=== PATIENT | female | born 1960 | race Caucasian/White ===

== ENCOUNTER 2024-09-11 14:31 | Outpatient (NON) | payer MEDICARE, OTHER, SELFPAY ==
--- OUTSIDE RECORDS SUMMARY | 2024-09-12 14:36 | XMS_ITS | Clinical Summary ---
Author Organization [facility] Address [address] [place] [address] Care Team Providers Care Stock Digger Name Role Phone Anitha Redding MD Primary Care Provider [phone] Allergies No known active allergies Medications multivitamin capsule Rx: Multivitamins - Capsule Active estradioL (VIVELLE-DOT) 0.075 mg/[address] 1 patch on the skin 2 (two) times a week 24 patch 4 Active Additional Information Patient not taking.Reported on 07/11/2024 Active Problems Problem Noted Date Diagnosed Date Ear itching 07/11/2024 Ear pain, bilateral 07/11/2024 Chronic eczematous otitis externa of both ears 0 07/11/2024 Positive colorectal cancer screening using Colog uard test 04/10/2024 Encounters Date Type Department Care Team Description 07/11/2024 3:00 PM PAINT FORMULATOR Office Visit [facility] Otolaryngology [address] [place] [phone] Haydee Bernardo, UBALDO Chronic eczematous otitis externa of both ears (Primary Dx); Ear pain, bilateral; Ear itching from Last 3 Months Surgical History Surgery Date Site/Laterality Comments LAPAROSCOPICALLY ASSISTED VAGINAL HYSTERECTOMY 06/18/2009 - 06/17/2010 LAVH, BSO, Anterior repair with Mini Arc TUBAL LIGATION Bilateral HYSTERECTOMY Total BREAST BIOPSY Left SHOULDER SURGERY 06/18/2015 - 06/17/2016 Right LASIK Medical History Medical History Date Comments Ear problems Family History Medical History Relation Name Comments No Known Problems Father No Known Problems Mother Breast cancer Neg Hx Ovarian cancer Neg Hx Relation Name Status Comments Father Mother Social History Tobacco Use Types Packs/Day Years Used Date Smoking Tobacco: Never Smokeless Tobacco: Never Tobacco Cessation:Counseling Given: Not Answered Alcohol Use Standard Drinks/Week Comments Not Currently 0 (1 standard drink = 0.6 oz pur e alcohol) AUDIT-C Answer Date Recorded Q1: How often do you have a drink containing alc ohol? 2-4 times a month 05/02/2024 Q2: How many drinks containi ng alcohol do you have on a typical day when you are drinking? 1 or 2 05/02/2024 Q3: How often do you have si x or more drinks on one occasion? Never 05/02/2024 Personal Safety Answer Date Recorded Have you ever been in or are you currently in a harmful physical or emotional relationship or is someone making you feel afraid or unsafe? Denies 05/02/2024 Comments No Sex and Gender Information Value Date Recorded Sex Assigned at Not on file Legal Sex Female 6:31 PM PAINT FORMULATOR Gender Identity Not on file Sexual Orientation Not on file Obstetrics History Para Term AB IAB SAB Ectopic Multiple Livin g Live Births 5 5 5 Date Outcome GA Total Labor Labor/2nd/3rd Weight Sex Type Anes PTL Marnie A1 A5 Name Clin Term Term Term Term Term Comments Last Filed Vital Signs Vital Sign Reading Time Taken Comments Blood Pressure 95/59 05/02/2024 4:10 PM PAINT FORMULATOR Pulse 72 05/02/2024 4:10 PM PAINT FORMULATOR Temperature 36.2 C (97.2 F) 05/02/2024 12:36 PM PAINT FORMULATOR Respiratory Rate 18 07/11/2024 2:50 PM PAINT FORMULATOR Oxygen Saturation 98% 05/02/2024 4:10 PM PAINT FORMULATOR Inhaled Oxygen Concentration - - Weight 49 kg (108 lb) 07/11/2024 2:50 PM PAINT FORMULATOR Height 154.9 cm (5' 1 ) 07/11/2024 2:50 PM PAINT FORMULATOR Body Mass Index 20.41 07/11/2024 2:50 PM PAINT FORMULATOR Plan of Treatment Health Maintenance Due Date Last Done Comments Depression Screening 1960 Fall Risk Assessment 1960 Hepatitis C Screening 1960 Osteoporosis Screening-Bone Density Scan 1960 DTaP/Tdap/Td Vaccine (1 - Tdap) 1969 Hepatitis B Screening 1976 Pneumococcal vaccine 65+ (1 of 1 - PCV) 2008 Zoster Vaccine (1 of 2) 2008 Well Visit 65+ 11/07/2023 02/11/2021, 2018 Covid-19 Vaccine (2 - 2023-2 5 season) 2024 05/11/2021 Breast Cancer Screening-Mammogram 04/09/2025 04/09/2024, 04/09/2024, 03/24/2021, Additional history exists Colon Cancer Screening-Colonoscopy 05/02/2034 05/02/2024 Cervical Cancer Screening Discontinued 2020, 05/21/2015, 05/08/2014 Influenza Vaccine Completed 04/10/2024, , 02/29/2016, Additional history exists Colon Cancer Screening-CT Colonography Discontinued 05/02/2024 Colon Cancer Screening-DNA Stool Discontinued 05/02/20 Colon Cancer Screening-FIT Discontinued 05/02/2024 Colon Cancer Screening-Sigmoidoscopy Discontinued 05/02/2024 Procedures Procedure Name Priority Date/Time Associated Diagnosis Comments COLONOSCOPY 05/02/2024 3:20 PM PAINT FORMULATOR SCREENING MAMMOGRAM BILATERAL W RAMÓN Schedule Routine, Read Routine (OP Routine) 03/24/2021 4:18 PM CDT Visit for screening mammogram THINPREP PAP WITH HPV Routine 02/11/2021 10:42 AM CDT from Last 3 Months or Most Recently Relevant to Health Maintenance Results * Colonoscopy (05/02/2024 3:20 PM PAINT FORMULATOR) Anatomical Region Laterality Modality Other Narrative Procedure Note Tyrel Ulloa MD - 05/02/2024 3:20 PM CST [facility] GI ENDOSCOPY Patient Name: Junie Wallis Procedure Date: 05/02/2024 3:20 PM Date of : 1960 Admit Type: Outpatient Age: 63 Gender: Female Attending MD: Tyrel Ulloa MD Room: [facility] ENDOSCOPY ROOM 04 Note Status: Finalized Procedure: Colonoscopy Indications: +cologuard, average risk Referring MD: Tyrel Ulloa MD Providers: Tyrel Ulloa MD Medicines: See the Anesthesia note for documentation of the administered medications Complications: No immediate complications. Estimated Blood Loss: Estimated blood loss was minimal. Procedure: The benefits, risks and alternatives of theprocedure and sedation were discussed and informed consentwas obtained. All questions were answered. Please referto the signed informed consent document in the medical record. The scope was passed under direct vision.The [id number] was introduced through theanus and advanced to the terminal ileum, with identification of the appendiceal orifice and IC valve. The colonoscopy was performed without difficulty. The patient tolerated the procedurewell. The quality of the bowel preparation was good.Scope insertion time was 2 minutes. Scope withdrawal time was 12 minutes. Prep was administered in a splitdose. Findings: The perianal and digital rectal examinations were normal. The visualized terminal ileum appeared normal. A 7 mm polyp was found in the ascending colon. The polyp was sessile. The polyp was removed with a cold snare. Resection and retrieval were complete. A 6 mm polyp was found in the rectum. The polyp was sessile. Thepolyp was removed with a cold snare. Resection and retrieval werecomplete. Mild pancolonic diverticulosis. Internal hemorrhoids were found. The hemorrhoids were small. Impression: - The examined portion of the terminal ileum was normal. - One 7 mm polyp in the ascending colon, removedwith a cold snare. Resected and retrieved. - One 6 mm polyp in the rectum, removed with a cold snare. Resected and retrieved. - Diverticulosis in the entire examined colon. - Internal hemorrhoids. Recommendation: - Await pathology results. - Resume previous diet today. - Discharge patient to home. - Increase fiber. - Patient has a contact number available for emergencies. The signs and symptoms of potential delayed complications were discussed with thepatient. Return to normal activities tomorrow. Written discharge instructions were provided to thepatient. - I would be happy to see you in my GI clinic ifyou have further questions or concerns or if symptoms progress Tyrel Ulloa MD 05/02/2024 3:45:34 PM Number of Addenda: 0 Note Initiated On: 05/02/2024 3:20 PM Recognized by the [employer] for promoting quality in endoscopy us Tyrel Ulloa MD ENDOSCOPY PROCEDURES Regine l Result * Screening Mammogram Bilateral W Ramón (03/24/2021 4:18 PM CDT) Anatomical Region Laterality Modality Breast Bilateral Mammography Impressions 03/25/2021 7:57 AM CDT BI-RADS ATLAS category (overall): 2 Benign There is no mammographic evidence of malignancy. A 1 year screening mammogram is recommended. The patient has been or will be contacted. We recommend annual screening mammography for women at average risk of breast cancer beginning at age 40, based on guidelines of the [employer] (ACR Practice Parameter for the Performance of Screening and Diagnostic Mammography) and [employer]. For women with and elevated risk of breast cancer, please refer to the ACR Practice Parameter for specific screening recommendations. The patient will be entered into a reminder system with a target due date of 1 year for her next screening exam. Narrative 03/25/2021 7:57 AM CDT Screening Mammogram Bilateral W Ramón: 03/24/21 The study was acquired using full field digital technology and interpreted from soft copy. 2D digital mammographic views, as well as 3D digital tomosynthesis were performed in the CC and MLO projections. CLINICAL: Visit for screening mammogram No relevant medical history has been documented for this patient. History of breast cancer in Neg Hx. COMPARISONS: 04/04/2018 Screening Mammogram 2D Bilateral 04/23/2015 Screening Mammogram Bilateral W Ramón 06/06/2013 Screening Mammogram 2D Bilateral BREAST TISSUE: The breasts are extremely dense, which lowers the sensitivity of mammography. FINDINGS: There are benign appearing calcifications in both breasts. There is a biopsy clip in the left breast. No suspicious masses, suspicious calcifications, or other suspicious findings are seen within either breast. There has been no suspicious change. Yadiel Cavazos MD IMG MAMMO PROCEDURES Fi nal Result * ThinPrep Pap with HPV (02/11/2021 10:42 AM CDT) Pap test 02/11/2021 10:4 2 AM CDT 02/14/2021 10:42 AM CDT Narrative 02/17/2021 1:59 PM CDT [facility] Department of Pathology [address] [place] [address] Final Report with Addendum Note to Patients: This report may contain a detailed description of human tissue sent by a health care provider to the laboratory for pathologic evaluation. The content of this report is essential for diagnosis and may provide important critical findings. This information may be unfamiliar to patients to review without a medical professional present. It is advised that the patient review this report in the presence of a health care provider who can answer questions and explain the details. Patient Name: JUNIE WALLIS Address: [address] [place] [address] Gender: F : 1960 (Age: 60) Service: Laboratory Location: [facility] #: [id number] Patient Type: Taken: 02/11/2021 Received: 02/14/2021 Accessioned:: 02/15/2021 Reported: 02/17/2021 Physician(s): Yadiel Cavazos M.D. [facility] Diagnosis: Source of Specimen: Imaged Thinprep Pap Test plus HPV - [employer] Interpreter Cytologic Material Specimen Adequacy: - Specimen satisfactory for interpretation; indeterminate endocervical component due to marked atrophy General Category: - Negative for intraepithelial lesion or malignancy Interpretation/Results: - Numerous inflammatory cells present NAHID Gonzalez(ASCP) Report Electronically Reviewed and Signed Out By NAHID Gonzalez(ASCP) 02/17/2021 13:59:40 Addenda: HPV Test Interpretation NEGATIVE for types 16, 18, 31, 33, 35, 39, 45, 51, 52, 56, 58, 59, 66 and 68. Test performed utilizing Gen-Probe Aptima assay. NAHID Schreiber(ASCP) Report Electronically Reviewed and Signed Out By NAHID Schreiber(ASC) 02/17/2021 11:53:26 Specimen(s) Received: A: Imaged Thinprep Pap Test plus HPV - [employer] Interpreter Cytologic Material Clinical History: Menstrual History: Hysterectomy The Pap test is a screening test used to aid in the detection of cervical cancer and its precursors. It should not be the sole means by which malignant and premalignant lesions are diagnosed. Both false negative and false positive results may occur. It also has poor sensitivity for the detection of endometrial lesions and should not be used to evaluate suspected endometrial abnormalities. For these reasons it is most important to obtain Pap tests at regular intervals. The performance characteristics of some immunohistochemical stains, fluorescence in-situ hybridization tests and immunophenotyping by flow cytometry cited in this report (if any) were determined by the Surgical Pathology Department at [facility] as part of an ongoing quality eng program and in compliance with federally mandated regulations drawn from the Clinical Laboratory Improvement Act of 1988 (CLIA '88). Some of these tests rely on the use of analyte specific reagents and are subject to specific labeling requirements by the US Food and Drug Administration. Such diagnostic tests may only be performed in a facility that is certified by the Department of Health and Human Services as a high complexity laboratory under CLIA '88. The FDA has determined that such clearance or approval is not necessary. This test is used for clinical purposes. It should not be regarded as investigational or for research. Nevertheless, federal rules concerning the medical use of analyte specific reagents require that the following disclaimer be attached to the report: This test was developed and its performance characteristics determined by the Surgical Pathology Department [facility]. It has not been cleared or approved by the U. S. Food and Drug Administration. Yadiel Cavazos MD LAB CYTOLOGY ORDERABLES Final Result from Last 3 Months or Most Recently Relevant to Health Maintenance Insurance COMMERCIAL GENERIC MEDICARE [facility] MEDIC[facility] Care Teams Stock Digger Relationship Specialty Start Date End Date Anitha Redding MD [address] [place] [address] PCP - General Family Medicine 07/01/24
--- OUTSIDE RECORDS SUMMARY | 2024-09-12 14:36 | XMS_ITS | Clinical Summary ---
Author Organization [facility] Address [facility] [place] [address] Care Team Providers Care Piped Buttonhole Machine Operator Name Role Phone Anitha Redding MD Primary Care Provider [phone] Allergies No known active allergies Medications Multiple Vitamin (MULTIVITAMIN) capsule Take 1 capsule by mouth daily. Active Active Problems Problem Noted Date Diagnosed Date Dizziness and giddiness 04/11/2024 Positive colorectal cancer screening using Colog uard test 04/10/2024 Encounters Date Type Department Care Team Description 07/25/2024 1:45 PM TEST SKEIN WINDER Office Visit [facility] [phone] Niyah Hays, LOCKER ROOM CLERK Follow Up 07/25/2024 Travel 07/03/2024 Telephone [facility] Family Medicine [address] [phone] Anitha Redding MD Referral Request 06/27/2024 2:00 PM TEST SKEIN WINDER Telemedicine [facility] - [address], [address] [place] [phone] Alana Watson NP Follow Up (- 6-10wk f/u/) 06/27/2024 Travel from Last 3 Months Immunizations Name Administration Dates Next Due Influenza (Generic) 02/29/2016,03/14/2015,2013 Influenza Adult (Generic) 04/16/2023 Family History Medical History Relation Comments brain tumor Daughter Relation Status Comments Daughter Social History Tobacco Use Types Packs/Day Years Used Date Smoking Tobacco: Never Passive Smoke Exposure: Never Smokeless Tobacco: Never Tobacco Cessation:Counseling Given: Not Answered Alcohol Use Standard Drinks/Week Comments Yes 0 (1 standard drink = 0.6 oz pur e alcohol) few drinks a month PHQ-2 Answer Date Recorded Patient Health Questionnaire-2 Score 0 04/04/2024 Comments No Sex and Gender Information Value Date Recorded Sex Assigned at Female 07/25/2024 1:38 PM TEST SKEIN WINDER Legal Sex Female 9:31 AM TEST SKEIN WINDER Gender Identity Not on file Sexual Orientation Not on file Last Filed Vital Signs Vital Sign Reading Time Taken Comments Blood Pressure 110/62 07/25/2024 1:41 PM TEST SKEIN WINDER Pulse 91 07/25/2024 1:41 PM TEST SKEIN WINDER Temperature 36.6 C (97.8 F) 04/11/2024 1:11 PM CDT Respiratory Rate 16 04/11/2024 1:11 PM CDT Oxygen Saturation 96% 07/25/2024 1:41 PM TEST SKEIN WINDER Inhaled Oxygen Concentration - - Weight 48.5 kg (107 lb) 07/25/2024 1:41 PM TEST SKEIN WINDER Height 154.9 cm (5' 1 ) 07/25/2024 1:41 PM TEST SKEIN WINDER Body Mass Index 20.22 07/25/2024 1:41 PM TEST SKEIN WINDER Plan of Treatment Health Maintenance Due Date Last Done Comments DTaP, Tdap and Td Vaccines (1 - Tdap) 1977 Dexa Scan (General) 11/07/2023 Influenza Adult (#1) 2024 04/16/2023, 02/29/2016, 03/14/2015, Additional history exists PHQ-2 (Physician [place]) 06/18/2024 04/04/2024 COVID-19 Vaccine (2 - season) 2025 05/11/2021 Postponed from 02/17/2024 (Patient Refused) Zoster Vaccines (1 of 2) 03/18/2025 Pos tponed from 2008 (Patient Refused) Mammogram Screening 04/09/2026 04/09/2024, 03/24/2021, 04/04/2018, Additional history exists Pneumococcal Vaccine: 65+ Years (1 of 1 - PCV) 06/18/2026 Postponed from 11/07/2023 (Patient Refused) Colorectal Cancer Screening FIT-DNA (3 Years) 03/22/2027 03/22/2024, 03/22/2024 RSV Immunization or 60+ Years (1 - 1-dose 75+ series) 2033 Hepatitis C Completed 03/29/2024 Meningococcal B Vaccine Aged Out No l onger eligible based on patient's age to complete this topic Meningococcal Vaccine Aged Out No kiki philip eligible based on patient's age to complete this topic Pneumococcal Vaccine: Pediatrics (0 to 5 Years) and At-Risk Patients (6 to 64 Years) Aged Out No longer eligible based on patient's age to complete this topic RSV Immunizations Under 20 Months Aged Out No longer eligible based on patient's age to complete this topic Medical Devices Implanted Type Area Desktop Analyst Device Identifier Shelf Expiration Date Model / Serial / Lot Speedbridge Implant Sytem With Scorpionn- Multifire Needle Implanted:Qty: 1 on 04/16/2019 by Suraj Lam MD at [facility] Right: Shoulder [employer] [id number] 12/15/2020 [id number] S-8 / / [id number] 2.6 Fiber Jono Suture [place], Double Loaded Implanted:Qty: 1 on 04/16/2019 by Suraj Lam MD at [facility] Right: Shoulder [employer] [id number] 08/16/2023 [id number]-[id number] / / [id number] Procedures Procedure Name Priority Date/Time Associated Diagnosis Comments MG SCREENING W RAMÓN PUSHPA DIGI Routine 04/09/2024 4:45 PM CDT Encounter for screening mammogram for malignant neoplasm of breast HEPATITIS C ANTIBODY Routine 03/29/2024 8:29 AM CDT Encounter for hepatitis C screening test for low risk patient COLOGUARD (EXACT SCIENCE) Routine 03/22/2024 9:20 AM CDT Colon cancer screening from Last 3 Months or Most Recently Relevant to Health Maintenance Results * MG SCREENING W RAMÓN PUSHPA DIGI (04/09/2024 4:45 PM CDT) Anatomical Region Laterality Modality Breast Bilateral Mammography 04/09/2024 5:42 PM CDT Impressions 04/09/2024 5:50 PM CDT IMPRESSION: No suspicious mammographic findings. Recommendation: 1. Routine Screening, Bilateral Assessment: ACR BI-RADS 2 - BENIGN FINDING(S) Ordered By: ANITHA REDDING Interpreted By: Jean Loyd MD, 04/09/2024 5:42 PM Narrative 04/09/2024 5:[address] [facility] Care [facility] [place] [address] Examination: Screening bilateral mammogram Exam Date: 04/09/2024 4:21 PM Clinical history: Routine screening. Comparison: 03/24/2021, 04/04/2018 Technique: Digital screening mammography of both breasts was performed. Breast tomosynthesis acquisitions were obtained and reviewed. This study was read with the assistance of a computer-aided detection system. Tissue density: The breasts are heterogeneously dense, which may obscure small masses. Findings: The breast parenchymal findings are stable. Scattered benign-appearing calcifications are noted. Left breast biopsy clip. No suspicious masses, malignant appearing calcifications, skin thickening or other abnormalities are present. No significant change from the prior exam. Anitha Redding MD MAMMO Final Result * HEPATITIS C ANTIBODY (03/29/2024 8:29 AM CDT) HEPATITIS C AB NON-REACTI VE NON-REACTI VE 03/29/2024 10:07 AM CDT [facility] 03/29/2024 8:29 AM CDT Anitha Redding MD LABORATORY Final Result [facility] [address] [place] [address], [place] [phone] * (ABNORMAL) COLOGUARD (EXACT SCIENCE) (03/22/2024 9:20 AM CDT) COLOGUARD RESULT Positive( A) Negative [employer] (CLIA #:[id number]) Comment: POSITIVE TEST RESULT. A positive Cologuard result should be followed with a colonoscopy or visual examination of the colon. The normal value (reference range) for this assay is negative. TEST DESCRIPTION: Composite algorithmic analysis of stool DNA-biomarkers with hemoglobin immunoassay. Quantitative values of individual biomarkers are not reportable and are not associated with individual biomarker result reference ranges. Cologuard is intended for colorectal cancer screening of adults of either sex, 45 years or older, who are at average-risk for colorectal cancer (CRC). Cologuard has been approved for use by the U.S. FDA. The performance of Cologuard was established in a cross sectional study of average-risk adults aged 50-84. Cologuard performance in patients ages 45 to 49 years was estimated by sub-group analysis of near-age groups. Colonoscopies performed for a positive result may find as the most clinically significant lesion: colorectal cancer [4.0%], advanced adenoma (including sessile serrated polyps greater than or equal to 1cm diameter) [20%] or non- advanced adenoma [31%]; or no colorectal neoplasia [45%]. These estimates are derived from a prospective cross-sectional screening study of 10,000 individuals at average risk for colorectal cancer who were screened with both Cologuard and colonoscopy. (Chani Beavers et al, N Engl J Med 2014;370(14):5784-8051.) Cologuard may produce a false negative or false positive result (no colorectal cancer or precancerous polyp present at colonoscopy follow up). A negative Cologuard test result does not guarantee the absence of CRC or advanced adenoma (pre-cancer). The current Cologuard screening interval is every 3 years. ([place] [employer] Society and U.S. Multi-Society Task Force). Cologuard performance data in a 10,000 patient pivotal study using colonoscopy as the reference method can be accessed at the following location: [email or web address].Jobvite/results. Additional description of the Cologuard test process, warnings and precautions can be found at www.cologuard.com. STOOL STOOL SPECIMEN / Unknown 03/22/2024 9:20 AM CDT 03/23/2024 6:45 PM CDT Anitha Redding MD BODY FLUIDS AND STOOLS ORDERABLE S Final Result [email or web address] [facility] [address] [place] [address], [employer] (CLIA #:[id number]) [address] [place] [address] from Last 3 Months or Most Recently Relevant to Health Maintenance Insurance R MEDICARE Care Teams Piped Buttonhole Machine Operator Relationship Specialty Start Date End Date Anitha Redding MD [address] [place] [address] PCP - General FAMILY PRACTICE 03/18/24
--- OUTSIDE RECORDS SUMMARY | 2024-09-12 14:36 | XMS_ITS | Clinical Summary ---
Author Organization [facility] Address [address] [place] [phone] Care Team Providers Care Freight Traffic Consultant Name Role Phone Unavailable Primary Care Provider Unavailabl e Social History Tobacco Use Types Packs/Day Years Used Date Smoking Tobacco: Never Assessed Comments Unknown Sex and Gender Information Value Date Recorded Sex Assigned at Not on file Legal Sex Female 3:43 PM CDT Gender Identity Not on file Sexual Orientation Not on file Plan of Treatment Health Maintenance Due Date Last Done Comments DEXA Bone Density 1960 Hepatitis C Virus (HCV) Screening 1960 TdaP Immunization 1960 Pap Smear 11/07/1979 Cervical Cancer Screening (CCS) 1988 HPV/Cotest 1988 Colonoscopy 11/07/2003 Colorectal Cancer Screening 11/07/2003 Cologuard 2008 Immunochemical Fecal Occult Blood 2008 Mammogram 2008 Pneumococcal Immunization (5 0+ years) (1 of 1 - PCV) 2008 Zoster Immunization (1 of 2) 2008 Influenza Immunization (#1) 02/17/202402/16, 03/14/2015, 03/31/2014 SARS-COV-2 Immunization ( - 2023- season) 2024 Respiratory Syncytial Virus (RSV) Immunization (Adult) (1 - 1-dose 75+ series) 2033 Hepatitis B Immunization Aged Out No longer eligible based on patient's age to complete this topic Meningococcal Immunization (ACWY) Aged Out No longer eligible b ased on patient's age to complete this topic Rotavirus Immunization Aged Out No lo nger eligible based on patient's age to complete this topic
--- OUTSIDE RECORDS SUMMARY | 2024-09-12 14:36 | XMS_ITS | Referral Summary ---
Author Organization [facility] Address [address] [place] [address] Care Team Providers Care Cigar Patcher Name Role Phone Anitha Redding MD Primary Care Provider [phone] Encounters Date Type Department Care Team Description 07/11/2024 3:00 PM [employer]ODU[employer] SALES REPRESENTATIVE Office Visit [facility] Otolaryngology [address] [place] [phone] Haydee Bernardo, UBALDO Chronic eczematous otitis externa of both ears (Primary Dx); Ear pain, bilateral; Ear itching from Last 3 Months Allergies No known active allergies Medications multivitamin [...] cancer screening using Colog uard test 04/10/2024 Social History Tobacco Use Types Packs/Day Years [...] on file Legal Sex Female 6:31 PM [employer] SALES REPRESENTATIVE Gender Identity Not on file Sexual Orientation Not on file Last Filed Vital Signs Vital Sign Reading Time Taken Comments Blood Pressure 95/59 05/02/2024 4:10 PM [employer] SALES REPRESENTATIVE Pulse 72 05/02/2024 4:10 PM [employer] SALES REPRESENTATIVE Temperature 36.2 C (97.2 F) 05/02/2024 12:36 PM [employer] SALES REPRESENTATIVE Respiratory Rate 18 07/11/2024 2:50 PM [employer] SALES REPRESENTATIVE Oxygen Saturation 98% 05/02/2024 4:10 PM [employer] SALES REPRESENTATIVE Inhaled Oxygen Concentration - - Weight 49 kg (108 lb) 07/11/2024 2:50 PM [employer] SALES REPRESENTATIVE Height 154.9 cm (5' 1 ) 07/11/2024 2:50 PM [employer] SALES REPRESENTATIVE Body Mass Index 20.41 07/11/2024 2:50 PM [employer] SALES REPRESENTATIVE Plan of Treatment Not on file Procedures Procedure Name Priority Date/Time Associated Diagnosis Comments COLONOSCOPY 05/02/2024 3:20 PM [employer] SALES REPRESENTATIVE SCREENING MAMMOGRAM BILATERAL W RAMÓN Schedule Routine, Read Routine (OP Routine) 03/24/2021 4:18 PM CDT Visit for screening mammogram THINPREP PAP WITH HPV Routine 02/11/2021 10:42 AM CDT from Last 3 Months or Most Recently Relevant to Health Maintenance Results * Colonoscopy (05/02/2024 3:20 PM [employer] SALES REPRESENTATIVE) Anatomical Region Laterality Modality Other Narrative Procedure Note Tyrel Ulloa MD - 05/02/2024 3:20 PM CST [facility] GI ENDOSCOPY Patient Name: Junie Wallis Procedure Date: 05/02/2024 3:20 PM Date of : 1960 Admit Type: Outpatient Age: 63 Gender: Female Attending MD: Tyrel Ulloa MD Room: [facility] END[facility]COPY ROOM 04 Note Status: Finalized Procedure: [...] The scope was passed under direct vision.The [id number] was introduced through theanus and advanced to [...] On: 05/02/2024 3:20 PM Recognized by the [employer] [employer] for promoting quality [...] age 40, based on guidelines of the [employer] [employer] (ACR Practice Parameter for the Performance of Screening and Diagnostic Mammography) and [employer] [employer]. For women [...] AM CDT Narrative 02/17/2021 1:59 PM CDT [facility] Department of Pathology [address] [place] [id number] Final Report with Addendum Note to Patients: [...] the details. Patient Name: JUNIE WALLIS Address: [address] [place] [id number] Gender: F : 1960 (Age: 60) Service: Laboratory Location: [facility] #: [id number] Patient Type: Taken: 02/11/2021 Received: 02/14/2021 Accessioned:: 02/15/2021 Reported: 02/17/2021 Physician(s): Yadiel Cavazos M.D. [facility] Diagnosis: Source of Specimen: Imaged Thinprep Pap Test plus HPV - Flight Information Expediter Cytologic Material Specimen Adequacy: - Specimen satisfactory [...] Electronically Reviewed and Signed Out By NAHID Schreiber(ASCP) 02/17/2021 11:53:26 Specimen(s) Received: A: Imaged Thinprep Pap Test plus HPV - Flight Information Expediter Cytologic Material Clinical History: Menstrual History: Hysterectomy [...] determined by the Surgical Pathology Department at [facility] as part of an ongoing quality control tech raw materials program and in compliance with federally mandated [...] characteristics determined by the Surgical Pathology Department [facility]. It has not been cleared or approved by the U. S. Food and Drug Administration. Yadiel Cavazos MD LAB CYTOLOGY ORDERABLES Final Result from Last 3 Months or Most Recently Relevant to Health Maintenance Insurance MEDICARE [facility] H[facility]/PPO Address: [place] [id number] [facility] H[facility]/[place] [address] MEDICARE [facility] Address: [address] [address] [place] [address] [facility] HMO/PPO Address: [place] [address] [place] [address] Care Teams Cigar Patcher Relationship Specialty Start Date End Date Anitha Redding MD [address] [place] [address] PCP - General Family Medicine 07/01/24
--- OUTSIDE RECORDS SUMMARY | 2024-09-12 14:36 | XMS_ITS | Encounter Summary ---
Author Organization [facility] Address [facility] [place] [address] Care Team Providers Care Search Engine Optimization Specialist Name Role Phone None, Provider Primary Care Provider Anitha Gipson MD Primary Care Provider [phone] Encounter Details Date Type Department Care Team (Late st Contact Info) Description 04/01/2019 Prep for Procedure [facility] [address] [place] [address] Anisa Fowler RN Social History Tobacco Use Types Packs/Day Years Used Date Smoking Tobacco: Never Smokeless Tobacco: Never Comments Unknown Sex and Gender Information Value Date Recorded Sex Assigned at Female 07/25/2024 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
--- OUTSIDE RECORDS SUMMARY | 2024-09-12 14:36 | XMS_ITS | Encounter Summary ---
Author Organization [facility] Address [address] [place] [address] Care Team Providers Care Trust Administrator Name Role Phone Unavailable Primary Care Provider Unavailabl e Encounter Details Date Type Department Care Team (Late st Contact Info) Description 08/21/2024 Lab Requisition [facility] - DermPath Lab [address] [place] [phone] Mateo Aparicio MD [address] [place] [address] Social History Tobacco Use Types Packs/Day Years Used Date Smoking Tobacco: Never Assessed Sex and Gender Information Value Date Recorded Sex Assigned at Not on file Gender Identity Not on file Sexual Orientation Not on file documented as of this encounter Plan of Treatment Not on file documented as of this encounter Procedures Procedure Name Priority Date/Time Associated Diagnosis Comments DERMATOPATHOLOGY Routine 08/19/2024 12:0 0 AM PROCESS SAFETY ENGINEER documented in this encounter Results * DERMATOPATHOLOGY (08/19/2024 12:00 AM PROCESS SAFETY ENGINEER) Case Report Dermatopathology Report Case: [id number] Authorizing Provider: Mateo Aparicio MD Collected: 08/19/2024 12:00 AM Ordering Location: [facility] - Received: 08/21/2024 06:59 AM DermPath Lab Pathologist: Penny Tucker MD Specimen: Skin, mid abd 9:24 AM CDT DERMATOPATHOLOGY LABORATORY Final Diagnosis Specimen A. SKIN, mid abd: BASALOID FOLLICULAR NEOPLASM, PIGMENTED, SUPERFICIAL PORTIONS OF (C44.319) (see microscopic description and comment) 9:24 AM CDT DERMATOPATHOLOGY LABORATORY Clinical History R/O Neoplasm 9:24 AM T DERMATOPATHOLOGY LABORATORY Gross Description Specimen A: Received is one formalin filled container labeled with the patient's name and designated mid abd. The specimen consists of a shave biopsy measuring 4 pieces 10x9x1,7x4x1,9x5x1, 9x6x1 mm. Jar 0. 9:24 AM T DERMATOPATHOLOGY LABORATORY Microscopic Description Specimen A. SKIN, mid abd: The specimen consists of fragments of tissue with aggregates of basaloid cells that show peripheral palisading of their nuclei. There are intermingled ectatic vessels and pseudocystic spaces. Many lesional cells contain intracytoplasmic melanin and there are collections of melanophages at the periphery of the aggregates. The hematoxylin and eosin stain is reviewed; immunohistochemical stains are performed to further characterize this process. Tumor cells are positive for BerEp4 and negative for KIARA and CEA. CK20 does not highlight intratumoral Bellwood cells (repeated to ensure technical adequacy) and SOX10 metcalf only colonizing melanocytes. Additional deeper sections were obtained and reviewed. 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 However, note is made of the lifelong history of this lesion. As such, a pigmented trichoblastoma was also briefly considered. The presence of strong and diffuse BerEp4 expression and absence of KIARA and CEA expression speaks against an eccrine ductal neoplasm which was also entertained. Nonetheless, complete removal to ensure full histopathologic evaluation and prevent local recurrence is recommended. 9:24 AM T DERMATOPATHOLOGY LABORATORY Disclaimer An external and internal positive and negative controls are appropriate for the histochemical, immunohistochemical and immunofluorescence stain(s) in this case (if any), except where stated explicitly. The performance characteristics of the stain(s) cited in this report were developed and its performance characteristic determined by the Dermatopathology Laboratory at [facility], directed by Dr. Stefan Aranda. These tests need not be, and therefore are not, approved by the [place] Food and Drug Administration. The tests are used for clinical purposes. Billing Codes Specimen Charges Stain Charges 78901 1 49013 45573 83809 98724 82693 51487 1 1 1 1 1 1 9:24 AM CDT DERMATOPATHOLOGY LABORATORY Embedded Images 9:24 AM T DERMATOPATHOLOGY LABORATORY Pathology/Cytolog y TISSUE SPECIMEN FROM SKIN / Unknown 08/19/2024 08/21/2024 6:59 AM PROCESS SAFETY ENGINEER Mateo Aparicio MD LAB - PATHOLOGY/CYTO LOGY ORDERABLES DERMATOPATHOLOGY LABORATORY [facility] - Department of Dermatology [facility] Medicine [address] [place] [address], [address] [phone] documented in this encounter Visit Diagnoses Not on filedocumented in this encounter
--- OUTSIDE RECORDS SUMMARY | 2024-09-12 14:36 | XMS_ITS | Clinical Summary ---
Author Organization [facility] Address [address] [place] [address] Care Team Providers Care Wire Repairer Name Role Phone Unavailable Primary Care Provider Unavailabl e Source Comments [email or web address],non-owned Affiliates and Associated Physician Practices is amultiple site organization consisting of ambulatory clinics and hospital sitesin [place], [place], [place] and [place]. This disclosure is being madepursuant to the Care Everywhere program and may not contain all information available regarding this patient. Last updated 18.[email or web address] Encounters Date Type Department Care Team Description 08/21/2024 Lab Requisition [facility] - DermPath Lab [address] [place] [phone] Mateo Aparicio MD from Last 3 Months Social History Tobacco Use Types Packs/Day Years Used Date Smoking Tobacco: Never Assessed Sex and Gender Information Value Date Recorded Sex Assigned at Not on file Gender Identity Not on file Sexual Orientation Not on file Plan of Treatment Health Maintenance Due Date Last Done Comments BONE DENSITY TESTING 1960 COLOGUARD (AGES 45-75) - COL ON CA SCREENING 1960 COLON MONITORING 1960 COLONOSCOPY - COLON CA SCREENING 1960 CT COLONOGRAPHY - COLON CA SCREENING 1960 Colorectal Cancer Screening 1960 FIT - COLON CA SCREENING 1960 FLEX SIG - COLON CA SCREENING 1960 LIPID TESTING 1960 MAMMOGRAM 1960 MEDICARE AWV 12 MONTHS 1960 PAP SMEAR 1960 HIV SCREENING 1973 HEPATITIS C SCREENING 11/01/1976 DTAP/TDAP/TD VACCINES (1 - Tdap) 1977 PNEUMOCOCCAL VACCINE 50+ (1 of 1 - PCV) 2008 ZOSTER VACCINE (1 of 2) 2008 COVID-19 VACCINE (1 - 2023-2 5 season) 2024 INFLUENZA VACCINE (#1) 2024 DEPRESSION SCREENING 06/18/2024 Respiratory Syncytial Virus (RSV) Vaccine Pt: or over 60 yrs (1 - 1-dose 75+ series) 2033 HEPATITIS B VACCINE Aged Out No longe r eligible based on patient's age to complete this topic HIB VACCINE Aged Out No longer eligi ble based on patient's age to complete this topic HPV VACCINE Aged Out No longer eligi ble based on patient's age to complete this topic MENINGOCOCCAL (Group B) VACC INE SHARED DECISION-MAKING Aged Out No longer eligibl e based on patient's age to complete this topic MENINGOCOCCAL GROUPS A/C/Y/W VACCINE Aged Out No longer eligible b ased on patient's age to complete this topic Procedures Procedure Name Priority Date/Time Associated Diagnosis Comments DERMATOPATHOLOGY Routine 08/19/2024 12:0 0 AM VETERANS' COUNSELOR from Last 3 Months Results * DERMATOPATHOLOGY (08/19/2024 12:00 AM VETERANS' COUNSELOR) Case Report Dermatopathology Report Case: [id number] Authorizing Provider: Mateo Aparicio MD Collected: 08/19/2024 12:00 AM Ordering Location: [facility] - Received: 08/21/2024 06:59 AM DermPath Lab Pathologist: Penny Tucker MD Specimen: Skin, mid abd 9:24 AM CDT DERMATOPATHOLOGY LABORATORY Final Diagnosis Specimen A. SKIN, mid abd: BASALOID FOLLICULAR NEOPLASM, PIGMENTED, SUPERFICIAL PORTIONS OF (C44.319) (see microscopic description and comment) 9:24 AM CDT DERMATOPATHOLOGY LABORATORY Clinical History R/O Neoplasm 9:24 AM CDT DERMATOPATHOLOGY LABORATORY Gross Description Specimen A: Received is one formalin filled container labeled with the patient's name and designated mid abd. The specimen consists of a shave biopsy measuring 4 pieces 10x9x1,7x4x1,9x5x1, 9x6x1 mm. Jar 0. 9:24 AM CDT DERMATOPATHOLOGY LABORATORY Microscopic Description Specimen A. SKIN, [...] and CEA. CK20 does not highlight intratumoral Corrina cells (repeated to ensure technical adequacy) and [...] evaluation and prevent local recurrence is recommended. 5 9:24 AM T DERMATOPATHOLOGY LABORATORY Disclaimer An external and internal positive and negative controls are appropriate for the histochemical, immunohistochemical and immunofluorescence stain(s) in this case (if any), except where stated explicitly. The performance characteristics of the stain(s) cited in this report were developed and its performance characteristic determined by the Dermatopathology Laboratory at [facility], directed by Dr. Stefan Aranda. These tests need not be, and therefore are not, approved by the [place] Food and Drug Administration. The tests are used for clinical purposes. Billing Codes Specimen Charges Stain Charges 46630 1 12520 03125 69085 12727 76647 45978 1 1 1 1 1 1 5 9:24 AM CDT DERMATOPATHOLOGY LABORATORY Embedded Images 5 9:24 AM T DERMATOPATHOLOGY LABORATORY Pathology/Cytolog y TISSUE SPECIMEN FROM SKIN / Unknown 08/19/2024 08/21/2024 6:59 AM VETERANS' COUNSELOR Mateo Aparicio MD LAB - PATHOLOGY/CYTO LOGY ORDERABLES DERMATOPATHOLOGY LABORATORY [facility] - Department of Dermatology [address] [place] [address], [facility] [phone] from Last 3 Months
== END 2024-09-11 14:32 | disposition home or self-care (01) ==
LOC: ANHLAB 09-12 14:34
PROVIDERS: Visit Provider Plastic Surgery
DX: D48.5 Neoplasm of uncertain behavior of skin (principal)
CPT/HCPCS: 88304